=== PATIENT | female | born 1975 | race Caucasian/White ===

== ENCOUNTER 2020-07-05 07:44 | Outpatient (CLI) | payer OTHER ==
--- NOTE | 2020-07-05 09:11 | ULT ---
EXAM: US Abdominal CLINICAL HISTORY: Abdominal fullness. COMPARISON: None. FINDINGS: Pancreas: Visualized pancreas has a normal echotexture IVC: Visualized IVC has a normal caliber. Aorta: Visualized aorta has a normal caliber. Liver:Normal hepatic parenchymal echotexture. No hepatic masses or intrahepatic biliary dilatation. T he contour of the hepatic margins maintained. Right hepatic lobe measures 18.6 cm Gallbladder: No sonographic evidence of cholelithiasis, gallbladder wall thickening or pericholecysti c fluid. Starr's sign:Negative CBD: 0.5 cm common bile duct diameter Portal vein: Patent. Appropriate directional flow. Right kidney: Normal cortical echotexture. No hydronephrosis Right kidney measuring 11.5 x 4.6 x 4. 6 cm in length. Left kidney: Normal cortical echotexture. No hydronephrosis. Left kidney measuring 11.8 x 5.6 x 5 point cm in length Spleen: Minimal echotexture, measuring 9.2 cm in maximum dimension IMPRESSION: Unremarkable exam.
== END 2020-07-05 07:45 | disposition home or self-care (01) ==
LOC: SCSULT 07:44
PROVIDERS: ATTEND Physician Assistant Medical
DX: R19.8 Other specified symptoms and signs involving the digestive system and abdomen (principal)
CPT/HCPCS: 93975

== ENCOUNTER 2020-07-05 13:37 | Outpatient (CLI) | payer OTHER ==
--- NOTE | 2020-07-05 14:29 | ULT ---
Exam: Pelvic ultrasound Urinary bladder ultrasound HISTORY: Pelvic fullness. COMPARISON: None TECHNIQUE: Multiple grayscale and color Doppler images were obtained in a transabdominal pelvic ultra sound. Spectral analysis of the Doppler waveforms of the ovaries were performed. FINDINGS: UTERUS: Not visualized compatible with patient's history of prior hysterectomy. No free fluid is present. RIGHT OVARY: Not visualized. Patient provides history of right oophorectomy. LEFT OVARY: Normal flow, without focal mass. Urinary bladder is incompletely distended with urinary bladder volume of 26.7 mL. Urinary bladder has a grossly normal sonographic appearance. IMPRESSION: 1. Nonvisualization of the uterus or right ovary. Patient provides clinical history of prior hysterec magno and right oophorectomy. 2. Grossly normal appearing left ovary with flow documented in the left ovary. 3. Urinary bladder incompletely distended but otherwise has a grossly normal sonographic appearance.
--- NOTE | 2020-07-08 12:13 | ULT ---
Exam: Pelvic ultrasound Urinary bladder ultrasound HISTORY: Pelvic fullness. COMPARISON: None TECHNIQUE: Multiple grayscale and color Doppler images were obtained in a transabdominal pelvic ultra sound. Spectral analysis of the Doppler waveforms of the ovaries were performed. FINDINGS: UTERUS: Not visualized compatible with patient's history of prior hysterectomy. No free fluid is present. RIGHT OVARY: Not visualized. Patient provides history of right oophorectomy. LEFT OVARY: Normal flow, without focal mass. Urinary bladder is incompletely distended with urinary bladder volume of 26.7 mL. Urinary bladder has a grossly normal sonographic appearance. IMPRESSION: 1. Nonvisualization of the uterus or right ovary. Patient provides clinical history of prior hysterec magno and right oophorectomy. 2. Grossly normal appearing left ovary with flow documented in the left ovary. 3. Urinary bladder incompletely distended but otherwise has a grossly normal sonographic appearance. Transcribed Date/Time: 07/08/2020 12:12 PM
== END 2020-07-05 13:38 | disposition home or self-care (01) ==
LOC: SCSULT 13:37
PROVIDERS: ATTEND Physician Assistant Medical
DX: R10.2 Pelvic and perineal pain (principal); N32.89 Other specified disorders of bladder; Z90.710 Acquired absence of both cervix and uterus; Z90.721 Acquired absence of ovaries, unilateral
CPT/HCPCS: 76856